=== PATIENT | female | born 1945 | race Caucasian/White ===

== ENCOUNTER 2019-06-03 12:37 | Emergency (ER) | payer BC, MEDICARE ==
[2019-06-03 14:28] LABS: Urine Appearance Clear; Urine Bilirubin Negative (Negative); Urine Blood Negative (Negative); Urine Color Straw; Urine Glucose Negative (Negative); Urine Ketones Negative (Negative); Urine Nitrite Negative (Negative); Urine Protein Negative (Negative); Urine Specific Gravity 1.005 (1.010-1.030); Urine Urobilinogen Negative (Negative)
--- NOTE | 2019-06-03 16:29 | ED ---
Back Pain - HPI Summary HPI Summary: 73-year-old female presents with back pain for the past couple days. She states symptoms started in January and have been getting worse. She states she felt like she pulled out her back in January. Has been having intermittent pain since. She states that she was bit by multiple ticks. has been treating self for Lyme disease with left over amoxicillin. Has been taking amoxicillin for the past week. States she did have urinary symptoms. Her urinary symptoms have resolved. She admits to occasional numbness and tingling down the legs. There is different than the sciatic pain has had the past. No fevers. No chest pain or shortness of breath. - History of Current Complaint Chief Complaint: EDBackInjuryPain Stated Complaint: BACK INJ/PRESSURE IN LEGS PER PT Time Seen by Provider: 06/03/19 16:17 Pain Intensity: 3 - Allergies/Home Medications Allergies/Adverse Reactions: Allergies Allergy/AdvReac Type Severity Reaction Status Date / Time iodine Allergy Anaphylatic Verified 06/03/19 12:53 Shock morphine Allergy Itching Verified 06/03/19 12:53 Home Medications: Home Medications Amoxicillin PO (*) [Amoxicillin 500 MG CAP*] 500 mg PO TID 06/03/19 [History Confirmed 06/03/19] Magnesium 200 mg PO BID 06/03/19 [History Confirmed 06/03/19] [place]-3 Fatty Acids/Fish Oil [Fish Oil 1,000 mg Softgel] 1 each PO BID 06/03/19 [History Confirmed 06/03/19] Ubidecarenone [Coq10] 100 mg PO BID 06/03/19 [History Confirmed 06/03/19] PMH/Surg Hx/FS Hx/Imm Hx Endocrine/Hematology History: Denies: Hx Anticoagulant Therapy Respiratory History: Denies: Hx Asthma - Immunization History Immunizations Up to Date: Yes Infectious Disease History: No Infectious Disease History: Denies: Traveled Outside the [place] in Last 30 Days - Family History Known Family History: Positive: Non-Contributory - Social History Alcohol Use: Occasionally Substance Use Type: Reports: None Smoking Status (MU): Former Smoker Review of Systems Negative: Fever Negative: Chest Pain Negative: Shortness Of Breath Positive: Myalgia - back pain All Other Systems Reviewed And Are Negative: Yes Physical Exam Triage Information Reviewed: Yes Vital Signs On Initial Exam: Initial Vitals Temp Pulse Resp BP Pulse Ox 98.7 F 77 18 130/88 96 06/03/19 12:50 06/03/19 12:50 06/03/19 12:50 06/03/19 12:50 06/03/19 12:50 Vital Signs Reviewed: Yes Appearance: Positive: Well-Appearing Skin: Positive: Warm, Dry Head/Face: Positive: Normal Head/Face Inspection Eyes: Positive: Normal, Conjunctiva Clear ENT: Positive: Pharynx normal Respiratory/Lung Sounds: Positive: Clear to Auscultation, Breath Sounds Present Cardiovascular: Positive: Normal, RRR Abdomen Description: Positive: Nontender, Soft, CVA Tenderness (L) Bowel Sounds: Positive: Present Musculoskeletal: Positive: Other - tenderness sides of lower back, neg SLR, good pulses, Neurological: Positive: Normal, Babinski Bilateral - normal Psychiatric: Positive: Normal Diagnostics - Vital Signs Vital Signs Temp Pulse Resp BP Pulse Ox 06/03/19 14:09 99.1 F 72 18 108/80 98 06/03/19 12:50 98.7 F 77 18 130/88 96 - Laboratory Lab Results: Lab Results 06/03/19 Range/Units 14:17 Urine Color Straw Urine Appearance Clear Urine pH 7.0 (5-9) Ur Specific [place] 1.005 L (1.010-1.030) Urine Protein Negative (Negative) Urine Ketones Negative (Negative) Urine Blood Negative (Negative) Urine Nitrate Negative (Negative) Urine Bilirubin Negative (Negative) Urine Urobilinogen Negative (Negative) Ur Leukocyte Esterase Negative (Negative) Urine Glucose Negative (Negative) Result Diagrams: 06/03/19 16:49 06/03/19 16:49 Lab Statement: Any lab studies that have been ordered have been reviewed, and results considered in the medical decision making process. - CT back CT Interpretation Completed By: Radiologist Summary of CT Findings: IMPRESSION: Diffuse osteopenia with hemangioma at the left L2. Mild degenerative disc disease at multiple levels are noted however no fracture is noted. abd CT Interpretation Completed By: Radiologist Summary of CT Findings: IMPRESSION: Elevated left hemidiaphragm which appears chronic. No obstructive uropathy is noted. Low density lesions in the liver are nonspecific but may represent cysts or hemangiomas. Cortical cyst is noted in the right kidney. Re-Evaluation - Re-Evaluation First Eval Re-Evaluation Time: 17:31 Comment: discussed results, does not want any medication Back Pain Course/Dx - Course Course Of Treatment: 73-year-old female presents with back pain for the past couple days. She states symptoms started in January and have been getting worse. She states she felt like she pulled out her back in January. Has been having intermittent pain since. She states that she was bit by multiple ticks. has been treating self for Lyme disease with left over amoxicillin. Has been taking amoxicillin for the past week. States she did have urinary symptoms. Her urinary symptoms have resolved. She admits to occasional numbness and tingling down the legs. There is different than the sciatic pain has had the past. No fevers. No chest pain or shortness of breath. On exam has tenderness over left side of lower back. Neurovascular intact. Negative straight leg raise. CT shows no stones or pyelpo. Ct back shows osteopenia. Urine is normal. lab work wnl. told to est care with primary. gave referral to PT. pt does not want any medication. Patient understands agrees plan. - Diagnoses Differential Diagnosis/HQI/PQRI: Positive: Fracture, Strain, Sprain Provider Diagnoses: Back pain Discharge ED - Sign-Out/Discharge Documenting (check all that apply): Patient Departure Patient Received Moderate/Deep Sedation with Procedure: No - Discharge Plan Condition: Good Disposition: HOME Patient Education Materials: Back Pain (ED) [place] [facility] [place] [facility] [place]Medical Doctor] - Additional Instructions: apply heat stretch establish care with primary take tyenlol every 6 hours for pain Return to ED if develop any new or worsening symptoms - Billing Disposition and Condition Condition: GOOD Disposition: Home - Attestation Statements Provider Attestation: I was available for consult. This patient was seen by the DAISY. The patient was not presented to, seen by, or examined by me. Peter Grigsby MD
[2019-06-03 16:57] LABS: ABS Basophils 0.1 10^3/ul (0-0.2); ABS Lymphocytes 0.9 10^3/ul (1.0-4.8); ABS Monocytes 0.3 10^3/ul (0-0.8); ABS Neutrophils 4.6 10^3/ul (1.5-7.7); Eosinophil % 0.5 %; Hematocrit 44 % (35-47); Hemoglobin 14.6 g/dL (12.0-16.0); Lymphocyte % 15.7 %; Mean Corpuscular HGB Conc 33 g/dL (31-36); Mean Corpuscular Hemoglobin 29 pg (27-31); Mean Corpuscular Volume 88 fL (80-97); Mean Platelet Volume 7.7 fL (7.4-10.4); Platelet Count 311 10^3/uL (150-450); Red Blood Count 4.96 10^6 /uL (3.70-4.87); Red Cell Distribution Width 14 % (10-15); White Blood Count 5.9 10^3/uL (3.5-10.8)
[2019-06-03 17:14] LABS: ALT 15 U/L (7-52); AST 20 U/L (13-39); Albumin 4.4 g/dL (3.2-5.2); Albumin/Globulin Ratio 1.8 (1-3); Alkaline Phosphatase 76 U/L (34-104); Anion Gap 7 mmol/L (2-11); BUN/Creatinine Ratio 23.1 (8-20); Blood Urea Nitrogen 15 mg/dL (6-24); C Reactive Protein < 1.00 mg/L (<8.01); CO2 Carbon Dioxide 28 mmol/L (22-32); Calcium 9.2 mg/dL (8.6-10.3); Chloride 105 mmol/L (101-111); EGFR African American 108.7 (>60); EGFR Non-African American 89.9 (>60); Globulin 2.4 g/dL (2-4); Glucose 102 mg/dL (70-100); Sodium 140 mmol/L (135-145); Total Protein 6.8 g/dL (6.4-8.9)
[2019-06-03 17:43] VITALS: BP 119/78
[2019-06-03 18:45] LABS: Hepatitis C Antibody Negative (Negative)
== END 2019-06-03 17:42 | disposition home or self-care (01) ==
LOC: ED 12:37
DX: M54.5 Low back pain (principal); R20.0 Anesthesia of skin; R20.2 Paresthesia of skin; M85.88 Other specified disorders of bone density and structure, other site; D18.09 Hemangioma of other sites; M51.36 Other intervertebral disc degeneration, lumbar region; K76.9 Liver disease, unspecified; Z88.3 Allergy status to other anti-infective agents; Z88.5 Allergy status to narcotic agent; Z87.891 Personal history of nicotine dependence
CPT/HCPCS: 36415; 72131; 74176; 80053; 81003; 85025; 86140; 86618; 86803; 99282